=== PATIENT | male | born 1950 | race Two or more races ===

== ENCOUNTER 2021-11-13 14:11 | Inpatient (IN) | payer MEDICARE, MEDICAID ==
[~2021-11-13] VITALS: Ht 167.6 cm; Wt 69.9 kg
[2021-11-13] MEDS ORDERED: SODIUM CHLORIDE 0.9% 1,000 ML IV ONE ×2 (14:45→17:30)
[2021-11-13 16:16] LABS: HEMOGLOBIN. 10.8 g/dL (14.0-18.0); MEAN CORPUSCULAR HEMOGLOBIN 30.5 pg (28.0-32.0); MEAN CORPUSCULAR VOLUME 92.9 fL (80.0-94.0); MEAN PLATELET VOLUME 8.2 fl (7.4-10.4); PLATELET 415 x1000/uL (130-400); RED BLOOD CELL COUNT 3.55 mill/uL (4.7-6.1); RED CELL DISTRIBUTION WIDTH 15.9 % (11.6-14.6)
[2021-11-13 16:33] LABS: CHLORIDE 111 mEq/L (98-107)
[2021-11-13 16:41] LABS: ETHANOL BLOOD < 10 mg/dL; PLATELET ESTIMATE INCREASED
[2021-11-13] MEDS ORDERED: CALCIUM CHLORIDE 1GM/10ML SYR IV ONE (17:30)
[2021-11-13] MEDS ORDERED: INSULIN REGULAR (HUMULIN R) 300UNITS/3ML VIAL IV ONE (17:30)
[2021-11-13] MEDS ORDERED: ALBUTEROL (0.083%) 2.5MG/3ML NEB HHN ONE (17:30)
[2021-11-13] MEDS ORDERED: DEXTROSE 50% WATER 50ML SYRINGE IV ONE (17:30)
[2021-11-13 18:36] LABS: CLARITY URINE TURBID (CLEAR); COLOR URINE RED (YELLOW); KETONES URINE NEGATIVE (NEGATIVE); LEUKOCYTE ESTERASE URINE 3+ (NEGATIVE); NITRITE URINE POSITIVE (NEGATIVE); OCCULT BLOOD URINE 2+ (NEGATIVE); PH URINE 8.5 (4.5-8.0); PROTEIN URINE 2+ (NEGATIVE); SPECIFIC GRAVITY URINE 1.021 (1.005-1.030); UROBILINOGEN URINE 0.2 E.U./dL (0.2-1.0)
[2021-11-13] MEDS ORDERED: VANCOMYCIN 1G PREMIX 200 ML IV ONE (19:00)
[2021-11-13] MEDS ORDERED: PIPERACILLIN/TAZ 3.375G PREMIX 50 ML IV ONE (19:00)
[2021-11-13 19:07] LABS: *AMPHETAMINES SCREEN URINE NEGATIVE (NEGATIVE); *BARBITURATES SCREEN URINE NEGATIVE (NEGATIVE); *BENZODIAZEPINES SCREEN URINE NEGATIVE (NEGATIVE); *COCAINE SCREEN URINE NEGATIVE (NEGATIVE); CANNABINOID URINE SCREEN NEGATIVE (NEGATIVE); METHADONE URINE SCREEN NEGATIVE (NEGATIVE); OPIATES URINE SCREEN NEGATIVE (NEGATIVE); PHENCYCLIDINE URINE SCREEN NEGATIVE (NEGATIVE)
[2021-11-13] MEDS ORDERED: GUAIFENESIN 200MG/10ML SUGAR FREE UDC PO PRN (20:45)
[2021-11-13] MEDS ORDERED: ZOLPIDEM TARTRATE 5MG TABLET PO PRN (20:45)
[2021-11-13] MEDS ORDERED: ONDANSETRON HCL 4MG/2ML INJ IV PRN (20:45)
[2021-11-13] MEDS ORDERED: DOCUSATE SODIUM 100MG CAPSULE PO PRN (20:45)
[2021-11-13] MEDS ORDERED: NITROGLYCERIN 0.4MG TABLET SL SL PRN (20:45)
[2021-11-13] MEDS ORDERED: CLONIDINE 0.1MG TABLET PO PRN (20:45)
[2021-11-13] MEDS ORDERED: ACETAMINOPHEN 325MG TABLET PO PRN ×2 (20:45)
[2021-11-13] MEDS ORDERED: MAGNESIUM/ALUMINUM HYDROXIDE/SIMETHICONE 30ML UDC PO PRN (20:45)
[2021-11-13] MEDS ORDERED: IPRATROPIUM/ALBUTEROL 0.5-3(2.5)MG/3ML NEB NEB PRN (20:45)
[2021-11-13] MEDS ORDERED: NA PHOS,M-B/NA PHOS,DI-BA ENEMA 118ML PR PRN (20:45)
[2021-11-13] MEDS: SODIUM CHLORIDE 0.9% 1,000 ML IV SCH (21:29)
[2021-11-13 21:32] LABS: T4 FREE 1.08 ng/dL (0.76-1.46)
[2021-11-13 21:52] LABS: FOLIC ACID (FOLATE) SERUM >20 ng/mL ng/mL (>5.38); VITAMIN B12 SERUM 1111 pg/mL (211-911)
[2021-11-13 22:35] VITALS: BP 105/52
[2021-11-13 23:19] LABS: CREATINE KINASE 348 IU/L (39-308); CREATINE KINASE MB FRACTION 3.3 ng/mL (0.5-3.6)
[2021-11-13] MEDS ORDERED: SODIUM BICARBONATE 8.4% 1 MEQ/ML 50ML SYR IV NR (23:30)
[2021-11-13] MEDS ORDERED: SODIUM POLYSTYRENE SULFONATE 15 G/60 ML BOT PO NR (23:30)
[2021-11-14] VITALS (7 sets, daily range): BP systolic 102–130; BP diastolic 54–74
[2021-11-14] MEDS: ASCORBIC ACID 500 MG TABLET PO SCH ×3 (00:19→20:36)
[2021-11-14] MEDS: FAMOTIDINE 20MG TABLET PO SCH ×2 (00:19→20:36)
[2021-11-14] MEDS: ENOXAPARIN 30MG/0.3ML SYR SUBCUT SCH ×2 (00:19→20:37)
[2021-11-14] MEDS ORDERED: VANCOMYCIN 500MG PREMIX 100 ML IV NR (02:00)
[2021-11-14] MEDS ORDERED: NIFE-33 MT (06:02)
[2021-11-14] MEDS: SODIUM CHLORIDE 0.9% 1,000 ML IV SCH ×2 (06:45→20:48)
[2021-11-14] MEDS ORDERED: ASPIRIN 325MG EC TABLET PO SCH (09:00)
[2021-11-14] MEDS ORDERED: PIPERACILLIN/TAZ 3.375G PREMIX 50 ML IV SCH (09:00)
[2021-11-14] MEDS: CHOLECALCIFEROL (D3) 1000 UNIT TABLET PO SCH (11:01)
[2021-11-14] MEDS: ZINC SULFATE 220 MG ( 50 ) CAPSULE PO SCH (11:02)
[2021-11-14] MEDS: PIPERACILLIN/TAZOBACTAM 3.375 G in DEXTROSE 5% WATER 50 ML IV SCH ×2 (12:34→20:34)
[2021-11-14 16:16] LABS: HEMATOCRIT. 31.4 % (42.0-52.0); HEMOGLOBIN. 10.2 g/dL (14.0-18.0); LYMPHOCYTES % 9.2 % (20.0-50.0); MEAN CORPUSCULAR HEMOGLOBIN 30.3 pg (28.0-32.0); MEAN CORPUSCULAR VOLUME 93.2 fL (80.0-94.0); MEAN PLATELET VOLUME 8.3 fl (7.4-10.4); MONOCYTES % 9.5 % (2.0-8.0); NEUTROPHILS % 81.3 % (40.0-76.0); PLATELET 421 x1000/uL (130-400); RED BLOOD CELL COUNT 3.37 mill/uL (4.7-6.1); RED CELL DISTRIBUTION WIDTH 15.6 % (11.6-14.6)
[2021-11-14 16:35] LABS: CHLORIDE 115 mEq/L (98-107)
[2021-11-14 16:45] LABS: CREATINE KINASE 240 IU/L (39-308); CREATINE KINASE MB FRACTION 1.9 ng/mL (0.5-3.6); PHOSPHORUS 6.9 mg/dL (2.5-4.9)
[2021-11-15] VITALS (67 sets, daily range): BP systolic 40–146; BP diastolic 21–105
[2021-11-15] MEDS: SODIUM CHLORIDE 0.9% 1,000 ML IV SCH ×4 (04:17→22:03)
[2021-11-15] MEDS ORDERED: NOREPINEPHRINE 8 MG in DEXT 5% WATER 242 ML IV PRN (05:00)
[2021-11-15] MEDS ORDERED: NON FORMULARY PATIENT HOME MED XX SCH (05:15)
[2021-11-15] MEDS: PHENYLEPHRINE 100 MG in DEXT 5% WATER 240 ML IV PRN ×2 (05:53→18:26)
[2021-11-15 06:20] LABS: BASOPHILS % 0.2 % (0.0-2.0); EOSINOPHILS % 0.1 % (0.0-5.0); HEMATOCRIT. 26.1 % (42.0-52.0); HEMOGLOBIN. 8.4 g/dL (14.0-18.0); MEAN CORPUSCULAR HEMOGLOBIN 29.7 pg (28.0-32.0); MEAN CORPUSCULAR VOLUME 92.9 fL (80.0-94.0); MEAN PLATELET VOLUME 8.4 fl (7.4-10.4); MONOCYTES % 4.3 % (2.0-8.0); NEUTROPHILS % 85.4 % (40.0-76.0); PLATELET 380 x1000/uL (130-400); RED BLOOD CELL COUNT 2.82 mill/uL (4.7-6.1); RED CELL DISTRIBUTION WIDTH 15.5 % (11.6-14.6)
[2021-11-15 06:37] LABS: CHLORIDE 111 mEq/L (98-107)
[2021-11-15 09:44] LABS: BG BASE EXCESS -8.9 mmol/L (-2.0-2.0); BG CARBOXYHEMOGLOBIN 0.2 % (0.5-1.5); BG DEOXYHEMOGLOBIN 0.7 % (0.0-5.0); BG METHEMOGLOBIN 0.3 % (0.0-1.5); BG OXYGEN SATURATION 99.3 % (92.0-98.5); BG OXYHEMOGLOBIN 98.8 % (94.0-97.0); BG PCO2 21.8 mmHg (35.0-45.0); BG PH 7.425 (7.350-7.450); BG PO2 183.1 mmHg (75.0-100.0); BG SAMPLE SITE RIGHT RADIAL; BG TOTAL HEMOGLOBIN 9.4 g/dL (12.0-18.0); BG VENT MODE NASAL CANNULA
[2021-11-15] MEDS ORDERED: SODIUM CHLORIDE 0.9% 500 ML IV SCH (09:45)
[2021-11-15] MEDS ORDERED: LIDOCAINE HCL 1% 30ML VIAL (10MG/ML) ONE (09:49)
[2021-11-15] MEDS: ASCORBIC ACID 500 MG TABLET PO SCH ×2 (09:53→21:58)
[2021-11-15] MEDS: CHOLECALCIFEROL (D3) 1000 UNIT TABLET PO SCH (09:53)
[2021-11-15] MEDS: PIPERACILLIN/TAZOBACTAM 3.375 G in DEXTROSE 5% WATER 50 ML IV SCH ×2 (09:53→21:38)
[2021-11-15] MEDS: ZINC SULFATE 220 MG ( 50 ) CAPSULE PO SCH (09:54)
[2021-11-15] MEDS ORDERED: VANCOMYCIN 1.25GM PMX (XELLIA) 250 ML IV SCH (10:00)
[2021-11-15 20:29] LABS: HEMOGLOBIN 8.2 g/dL (14.0-18.0)
[2021-11-15] MEDS: FAMOTIDINE 20MG TABLET PO SCH (21:58)
[2021-11-16] VITALS (56 sets, daily range): BP systolic 82–134; BP diastolic 26–88
[2021-11-16 05:31] LABS: MEAN CORPUSCULAR HEMOGLOBIN 29.8 pg (28.0-32.0); MEAN CORPUSCULAR VOLUME 95.3 fL (80.0-94.0); MEAN PLATELET VOLUME 8.8 fl (7.4-10.4); PLATELET 326 x1000/uL (130-400); RED BLOOD CELL COUNT 2.15 mill/uL (4.7-6.1); RED CELL DISTRIBUTION WIDTH 15.7 % (11.6-14.6)
[2021-11-16 06:03] LABS: HEMATOCRIT. 20.5 % (42.0-52.0); HEMOGLOBIN. 6.4 g/dL (14.0-18.0)
[2021-11-16] MEDS: ZINC SULFATE 220 MG ( 50 ) CAPSULE PO SCH (08:26)
[2021-11-16] MEDS: CHOLECALCIFEROL (D3) 1000 UNIT TABLET PO SCH (08:26)
[2021-11-16] MEDS: PIPERACILLIN/TAZOBACTAM 3.375 G in DEXTROSE 5% WATER 50 ML IV SCH ×2 (08:26→22:10)
[2021-11-16] MEDS: ASCORBIC ACID 500 MG TABLET PO SCH ×2 (08:26→21:00)
[2021-11-16] MEDS ORDERED: SODIUM POLYSTYRENE SULFONATE 15 G/60 ML BOT PO NR (11:00)
[2021-11-16] MEDS ORDERED: VANCOMYCIN 1GM PMX (XELLIA) 200 ML IV SCH (12:00)
[2021-11-16 13:15] LABS: NUCLEATED RED BLOOD CELLS 2 /100 WBC
[2021-11-16 13:16] LABS: PLATELET ESTIMATE NORMAL
[2021-11-16] MEDS: SODIUM CHLORIDE 0.9% 1,000 ML IV SCH (18:45)
[2021-11-16] MEDS: FAMOTIDINE 20MG TABLET PO SCH (22:10)
[2021-11-17] VITALS (79 sets, daily range): BP systolic 56–136; BP diastolic 27–104
[2021-11-17] MEDS: PHENYLEPHRINE 100 MG in DEXT 5% WATER 240 ML IV PRN (02:45)
[2021-11-17 05:30] LABS: HEMATOCRIT. 26.4 % (42.0-52.0); HEMOGLOBIN. 8.4 g/dL (14.0-18.0); MEAN CORPUSCULAR HEMOGLOBIN 30.9 pg (28.0-32.0); MEAN CORPUSCULAR VOLUME 96.7 fL (80.0-94.0); MEAN PLATELET VOLUME 8.4 fl (7.4-10.4); PLATELET 224 x1000/uL (130-400); RED BLOOD CELL COUNT 2.73 mill/uL (4.7-6.1); RED CELL DISTRIBUTION WIDTH 15.6 % (11.6-14.6)
[2021-11-17] MEDS: CHOLECALCIFEROL (D3) 1000 UNIT TABLET PO SCH (08:28)
[2021-11-17] MEDS: ASCORBIC ACID 500 MG TABLET PO SCH ×2 (08:28→21:00)
[2021-11-17] MEDS: ZINC SULFATE 220 MG ( 50 ) CAPSULE PO SCH (08:29)
[2021-11-17] MEDS: PIPERACILLIN/TAZOBACTAM 3.375 G in DEXTROSE 5% WATER 50 ML IV SCH ×2 (08:30→21:00)
[2021-11-17] MEDS: SODIUM CHLORIDE 0.45% 1,000 ML IV SCH ×2 (08:31→20:56)
[2021-11-17 11:05] LABS: NUCLEATED RED BLOOD CELLS 9 /100 WBC
[2021-11-17 11:06] LABS: PLATELET ESTIMATE NORMAL
[2021-11-17] MEDS: MIDODRINE HCL 5MG TABLET PO SCH ×2 (12:19→17:18)
[2021-11-17] MEDS: VANCOMYCIN 1G PREMIX 200 ML IV SCH (12:19)
[2021-11-17] MEDS: TAMSULOSIN HCL 0.4MG SR CAPSULE PO SCH (12:19)
[2021-11-17] MEDS: FAMOTIDINE 20MG TABLET PO SCH (21:00)
[2021-11-18] VITALS (105 sets, daily range): BP systolic 63–134; BP diastolic 31–85
[2021-11-18 05:41] LABS: EOSINOPHILS % 1.2 % (0.0-5.0); HEMATOCRIT. 23.7 % (42.0-52.0); HEMOGLOBIN. 7.9 g/dL (14.0-18.0); LYMPHOCYTES % 15.7 % (20.0-50.0); MEAN CORPUSCULAR HEMOGLOBIN 31.5 pg (28.0-32.0); MEAN CORPUSCULAR VOLUME 95.1 fL (80.0-94.0); MEAN PLATELET VOLUME 7.6 fl (7.4-10.4); MONOCYTES % 5.7 % (2.0-8.0); NEUTROPHILS % 77.4 % (40.0-76.0); PLATELET 234 x1000/uL (130-400); RED CELL DISTRIBUTION WIDTH 15.5 % (11.6-14.6)
[2021-11-18 05:46] LABS: CHLORIDE 111 mEq/L (98-107)
[2021-11-18] MEDS: PIPERACILLIN/TAZOBACTAM 3.375 G in DEXTROSE 5% WATER 50 ML IV SCH ×2 (09:17→21:37)
[2021-11-18] MEDS: CHOLECALCIFEROL (D3) 1000 UNIT TABLET PO SCH (09:17)
[2021-11-18] MEDS: ZINC SULFATE 220 MG ( 50 ) CAPSULE PO SCH (09:17)
[2021-11-18] MEDS: TAMSULOSIN HCL 0.4MG SR CAPSULE PO SCH (09:17)
[2021-11-18] MEDS: MIDODRINE HCL 5MG TABLET PO SCH ×3 (09:17→17:04)
[2021-11-18] MEDS: ASCORBIC ACID 500 MG TABLET PO SCH ×2 (09:17→21:37)
[2021-11-18] MEDS: PHENYLEPHRINE 100 MG in DEXT 5% WATER 240 ML IV PRN (12:39)
[2021-11-18] MEDS: VANCOMYCIN 1G PREMIX 200 ML IV SCH (14:01)
[2021-11-18] MEDS: FAMOTIDINE 20MG TABLET PO SCH (21:37)
[2021-11-19] VITALS (95 sets, daily range): BP systolic 79–150; BP diastolic 38–103
[2021-11-19 05:32] LABS: BASOPHILS % 0.1 % (0.0-2.0); EOSINOPHILS % 1.3 % (0.0-5.0); HEMATOCRIT. 23.6 % (42.0-52.0); HEMOGLOBIN. 7.7 g/dL (14.0-18.0); LYMPHOCYTES % 11.2 % (20.0-50.0); MEAN CORPUSCULAR HEMOGLOBIN 31.4 pg (28.0-32.0); MEAN PLATELET VOLUME 7.6 fl (7.4-10.4); MONOCYTES % 6.5 % (2.0-8.0); NEUTROPHILS % 80.9 % (40.0-76.0); PLATELET 240 x1000/uL (130-400); RED BLOOD CELL COUNT 2.45 mill/uL (4.7-6.1); RED CELL DISTRIBUTION WIDTH 15.6 % (11.6-14.6)
[2021-11-19 05:43] LABS: CHLORIDE 108 mEq/L (98-107)
[2021-11-19] MEDS ORDERED: POTASSIUM PHOS,M-BASIC-D-BASIC 15 MMOL in DEXT 5% WATER 245 ML IV NR (09:30)
[2021-11-19] MEDS: ZINC SULFATE 220 MG ( 50 ) CAPSULE PO SCH (09:34)
[2021-11-19] MEDS: ASCORBIC ACID 500 MG TABLET PO SCH ×2 (09:34→20:35)
[2021-11-19] MEDS: MIDODRINE HCL 5MG TABLET PO SCH ×3 (09:34→18:11)
[2021-11-19] MEDS: TAMSULOSIN HCL 0.4MG SR CAPSULE PO SCH (09:34)
[2021-11-19] MEDS: CHOLECALCIFEROL (D3) 1000 UNIT TABLET PO SCH (09:34)
[2021-11-19] MEDS: FAMOTIDINE 20MG TABLET PO SCH (20:35)
[2021-11-20] VITALS (35 sets, daily range): BP systolic 86–138; BP diastolic 45–77
[2021-11-20 05:55] LABS: BASOPHILS % 0.1 % (0.0-2.0); EOSINOPHILS % 1.4 % (0.0-5.0); HEMATOCRIT. 23.4 % (42.0-52.0); HEMOGLOBIN. 7.6 g/dL (14.0-18.0); LYMPHOCYTES % 13.3 % (20.0-50.0); MEAN CORPUSCULAR HEMOGLOBIN 31.3 pg (28.0-32.0); MEAN CORPUSCULAR VOLUME 96.8 fL (80.0-94.0); MEAN PLATELET VOLUME 7.4 fl (7.4-10.4); MONOCYTES % 6.7 % (2.0-8.0); NEUTROPHILS % 78.5 % (40.0-76.0); PLATELET 242 x1000/uL (130-400); RED BLOOD CELL COUNT 2.42 mill/uL (4.7-6.1); RED CELL DISTRIBUTION WIDTH 17.2 % (11.6-14.6)
[2021-11-20 06:02] LABS: CHLORIDE 112 mEq/L (98-107)
[2021-11-20 06:07] LABS: PHOSPHORUS 2.2 mg/dL (2.5-4.9)
[2021-11-20] MEDS ORDERED: POTASSIUM PHOS,M-BASIC-D-BASIC 20 MMOL in DEXT 5% WATER 243.3333 ML IV NR (08:30)
[2021-11-20] MEDS: ZINC SULFATE 220 MG ( 50 ) CAPSULE PO SCH (08:48)
[2021-11-20] MEDS: MIDODRINE HCL 5MG TABLET PO SCH ×3 (08:48→18:48)
[2021-11-20] MEDS: ASCORBIC ACID 500 MG TABLET PO SCH ×2 (08:49→21:38)
[2021-11-20] MEDS: TAMSULOSIN HCL 0.4MG SR CAPSULE PO SCH (08:49)
[2021-11-20] MEDS: CHOLECALCIFEROL (D3) 1000 UNIT TABLET PO SCH (08:49)
[2021-11-20] MEDS: FAMOTIDINE 20MG TABLET PO SCH (21:38)
[2021-11-21] VITALS (7 sets, daily range): BP systolic 101–122; BP diastolic 49–73
[2021-11-21 07:16] LABS: BASOPHILS % 0.2 % (0.0-2.0); EOSINOPHILS % 1.4 % (0.0-5.0); HEMATOCRIT. 24.6 % (42.0-52.0); HEMOGLOBIN. 7.9 g/dL (14.0-18.0); LYMPHOCYTES % 12.4 % (20.0-50.0); MEAN CORPUSCULAR HEMOGLOBIN 31.2 pg (28.0-32.0); MEAN CORPUSCULAR VOLUME 97.6 fL (80.0-94.0); MEAN PLATELET VOLUME 7.9 fl (7.4-10.4); MONOCYTES % 7.5 % (2.0-8.0); NEUTROPHILS % 78.5 % (40.0-76.0); PLATELET 278 x1000/uL (130-400); RED BLOOD CELL COUNT 2.52 mill/uL (4.7-6.1); RED CELL DISTRIBUTION WIDTH 17.5 % (11.6-14.6)
[2021-11-21 07:31] LABS: CHLORIDE 110 mEq/L (98-107)
[2021-11-21 07:38] LABS: PHOSPHORUS 2.5 mg/dL (2.5-4.9)
[2021-11-21] MEDS: TAMSULOSIN HCL 0.4MG SR CAPSULE PO SCH (10:51)
[2021-11-21] MEDS: ZINC SULFATE 220 MG ( 50 ) CAPSULE PO SCH (10:52)
[2021-11-21] MEDS: CHOLECALCIFEROL (D3) 1000 UNIT TABLET PO SCH (10:52)
[2021-11-21] MEDS: MIDODRINE HCL 5MG TABLET PO SCH ×3 (10:52→18:11)
[2021-11-21] MEDS: ASCORBIC ACID 500 MG TABLET PO SCH ×2 (10:53→21:10)
[2021-11-21] MEDS: FAMOTIDINE 20MG TABLET PO SCH (21:10)
[2021-11-22 04:00] VITALS: BP 103/52
[2021-11-22 08:00] VITALS: BP 119/57
[2021-11-22] MEDS: CHOLECALCIFEROL (D3) 1000 UNIT TABLET PO SCH (09:30)
[2021-11-22] MEDS: MIDODRINE HCL 5MG TABLET PO SCH (09:31)
[2021-11-22] MEDS: TAMSULOSIN HCL 0.4MG SR CAPSULE PO SCH (09:31)
[2021-11-22] MEDS: ASCORBIC ACID 500 MG TABLET PO SCH (09:31)
[2021-11-22] MEDS: ZINC SULFATE 220 MG ( 50 ) CAPSULE PO SCH (09:31)
[2021-11-22 11:12] VITALS: BP 119/57
== END 2021-11-22 12:15 | DRG 871 ==
LOC: ER 14:31 → ENRESERV 19:46 → CANRESERV 19:46 → ENRESERV 19:53 → SUPCPDRO 20:37 → 8WST 22:51 → CVICU 11-15 05:40 → 7EST 11-20 14:33
PROVIDERS: ADMIT Internal Medicine; ATTEND Internal Medicine
PROC: 02HV33Z Insertion of Infusion Device into Superior Vena Cava, Percutaneous Approach (ICD-10-PCS; 2021-11-15)
PROC: B548ZZA Ultrasonography of Superior Vena Cava, Guidance (ICD-10-PCS; 2021-11-15)
PROC: 30233N1 Transfusion of Nonautologous Red Blood Cells into Peripheral Vein, Percutaneous Approach (ICD-10-PCS; principal; 2021-11-16)
DX: A41.89 Other specified sepsis (principal); E43 Unspecified severe protein-calorie malnutrition; G92.8 Other toxic encephalopathy; N17.0 Acute kidney failure with tubular necrosis; R65.21 Severe sepsis with septic shock; R57.8 Other shock; I21.4 Non-ST elevation (NSTEMI) myocardial infarction; E87.0 Hyperosmolality and hypernatremia; E87.2 Acidosis; N13.6 Pyonephrosis; E86.0 Dehydration; E83.39 Other disorders of phosphorus metabolism; D64.9 Anemia, unspecified; L91.8 Other hypertrophic disorders of the skin; R74.01 Elevation of levels of liver transaminase levels; I11.9 Hypertensive heart disease without heart failure; E83.41 Hypermagnesemia; E83.52 Hypercalcemia; E87.5 Hyperkalemia; S30.91XA Unspecified superficial injury of lower back and pelvis, initial encounter; X58.XXXA Exposure to other specified factors, initial encounter; Y99.8 Other external cause status; Z86.73 Personal history of transient ischemic attack (TIA), and cerebral infarction without residual deficits; Y93.89 Activity, other specified; Z87.891 Personal history of nicotine dependence; Z68.24 Body mass index [BMI] 24.0-24.9, adult; Y92.89 Other specified places as the place of occurrence of the external cause; R62.50 Unspecified lack of expected normal physiological development in childhood
CPT/HCPCS: 36415; 36573; 36600; 70551; 71045; 76770; 80048; 80053; 80061; 80202; 80305; 80320; 81003; 82375; 82550; 82553; 82607; 82746; 82805; 83036; 83540; 83550; 83605; 83735; 84100; 84439; 84443; 84484; 85014; 85018; 85025; 86850; 86900; 86920; 93306; 93970; 97165; 99291; A6261; C1725; C1893; J1650; J2370; J2543; J3370; J3490; J7030; J7060; P9016; A4315; G0480